=== PATIENT | male | born 1980 ===

== ENCOUNTER 2024-07-18 06:57 | Day surgery (SDC) | payer BC, SELFPAY ==
[2024-07-18] MEDS ORDERED: NA CHLORIDE 0.9% 1,500 ML ONE (07:04)
[2024-07-18] MEDS ORDERED: OXYMETAZOLINE HCL 0.05% 15ML NAS ONE ×2 (07:15→10:33)
[2024-07-18] MEDS: Ringers Lactate 1,000 ML IV ONE (07:45)
[2024-07-18] MEDS ORDERED: ONDANSETRON 4 MG/2 ML VIAL ONE (09:07)
[2024-07-18] MEDS ORDERED: FENTANYL CITR 100 MCG/2 ML ONE ×3 (09:07→11:31)
[2024-07-18] MEDS ORDERED: MIDAZOLAM HCL 2 MG/2 ML INJ ONE (09:07)
[2024-07-18] MEDS ORDERED: propofoL 200 MG/20 ML VIAL IV ONE (09:07)
[2024-07-18] MEDS ORDERED: LIDOCAINE 2% MPF 5 ML VIAL ONE (09:07)
[2024-07-18] MEDS ORDERED: ROCURONIUM 50 MG/5 ML VIAL IV ONE ×2 (09:10→10:15)
[2024-07-18] MEDS: CEFAZOLIN SODIUM 2 GM/VIAL ONE (09:53)
[2024-07-18] MEDS: LIDOCAINE HCL/EPINEPHRINE 20 ML MDV ONE (10:08)
[2024-07-18] MEDS ORDERED: dexAMETHasone 4 MG/ML VIAL ONE (10:11)
[2024-07-18] MEDS ORDERED: EPHEDRINE SULF 50 MG/ML VIAL ONE (10:24)
[2024-07-18] MEDS: TRANEXAMIC ACID 1,000 MG/10 ML VIAL IV ONE (10:34)
[2024-07-18] MEDS ORDERED: TRANEXAMIC ACID 1,000 MG/10 ML VIAL IV ONE (10:38)
[2024-07-18] MEDS ORDERED: BSS OPTHALMIC SOL 15 ML OPTH ONE (11:29)
[2024-07-18] MEDS: ONDANSETRON 4 MG/2 ML VIAL ONE (13:12)
[2024-07-18] MEDS ORDERED: Ringers Lactate 1,000 ML IV ONE (13:13)
[2024-07-18] MEDS: HYDROMORPHONE HCL 1 MG/ML INJ ONE (13:19)
[2024-07-18] MEDS: PROMETHAZINE INJ 25 MG/ML AMP ONE ×2 (13:25)
[2024-07-18 14:01] VITALS: O2SAT 100
[2024-07-18 15:06] VITALS: BP 133/87; TEMP 97.8
--- NOTE | 2024-07-22 10:57 | EKG ---
Test Date: 2024-07-18 Test Time: 08:15:29 Clinical Data Abstractor: ANABELL MEASUREMENT RESULTS: Intervals: Rate: 65 NC: 138 QRSD: 118 QT: 408 QTc: 424 Chandler: P: 43 NC: 138 QRS: -28 T: 12 INTERPRETIVE STATEMENTS: Normal sinus rhythm Nonspecific intraventricular conduction delay Borderline ECG Compared to ECG 07/17/2013 11:03:34 Intraventricular conduction delay now present Left-axis deviation no longer present Right bundle-branch block no longer present Electronically Signed On 07-22-24 10:51:52 PRODUCT APPLICATIONS ENGINEER by Kojo Ibanez
--- NOTE | 2024-07-23 20:41 | OP ---
Date of Procedure: 07/18/2024 Surgeon: TYLER CHADWICK Preoperative Diagnoses: 1. Chronic bilateral nasal/sinus polyposis. 2. Bilateral maxillary sinusitis. 3. Right anterior ethmoid sinusitis. Postoperative Diagnoses: 1. Chronic bilateral nasal/sinus polyposis. 2. Bilateral maxillary sinusitis. 3. Right anterior ethmoid sinusitis. Procedures: 1. Stereotactic computer-assisted navigational guidance. 2. Bilateral endonasal/sinus polypectomies. 3. Bilateral maxillary sinus lavage. 4. Removal of bilateral maxillary sinus tissue, fungal debris from left maxillary sinus and polyps from right maxillary sinus. 5. Right anterior ethmoidectomy. Anesthesia: General endotracheal anesthesia was administered. I also infiltrated the nasal polyps with approximately 10 mL of 1% lidocaine with 1:100,000 epinephrine. Specimens: Obtained from the left maxillary sinus and bilateral nasal cavities. Estimated Blood Loss: Approximately 100-150 mL. Findings: Extensive left nasal cavity and left sinus polyps with complete opacification of the left maxillary sinus with, what appears to be, allergic fungal tissue. Anatomy is distorted secondary to polyp growth. Right nasal cavity positive for mild polyposis posteriorly blocking the ostiomeatal complex and instead extending into the ethmoid sinus. Partial opacification of the right maxillary sinus with polyps. Complications: The patient had above average bleeding, which is expected for chronic nasal polyps, last surgery was approximately 20 years ago. The patient needed tranexamic acid to slow down the bleeding, which eventually stopped. Disposition: Stable. The patient tolerated the procedure well. Indication For Procedure: The patient is a 44-year-old male with a prior history of external approach to excision of polyps 20 years ago, who presented to my outpatient clinic with chronic nasal obstruction, left nasal cavity worse than right. Examination revealed extensive polyposis involving the left nasal cavity extending to the sinuses including ethmoid, maxillary, sphenoid and frontal. Right nasal cavity exam demonstrated mild polyposis involving the right maxillary sinus and occluding the ostiomeatal complex and extending into the right frontal recess and ethmoid sinus. These are indications to bring the patient to the operating suite for the above-mentioned procedure. He understood, all questions were answered. Risks versus benefits and complications were explained in detail and a consent form was signed, was placed in the chart. Description Of Procedure: The patient was transferred from the preoperative holding area to the operative suite by Department of Anesthesia, placed on the operating table supine, sedated, and intubated in normal fashion. Table was rotated 180 degrees and head rest was placed. We calibrated the navigation guidance machine to the patient and found that it was working accurately. Afrin-soaked nasal pledgets were introduced in bilateral nasal cavities and the patient was sterilely prepped and draped. The pledgets were removed and I injected the nasal polyps with approximately 10 ml of 1% lidocaine with 1:100,000 epinephrine. I then visualized with a 0 degree rigid nasal endoscope and used a 4.0 microdebrider blade to remove the polyps initially from the left nasal cavity extending all the way back to the sphenoid sinus rostrum. Dissection was very meticulous and it took almost 2 hours to remove the tissue due to oozing of blood. The polyps were completely removed from the left nasal cavity extending back to the sphenoid sinus, the left frontal recess, and the polyps that were blocking the left ostiomeatal complex. I then used irrigation to irrigate the left maxillary sinus as he had a widening of his left maxillary ostium due to expansile nature of polyps and debris. There was complete opacification with fungal debris, which was removed, under visualization with a 70-degree endoscope and we were able to remove all the fungal debris from his left maxillary sinus utilizing suction, irrigation, and Fadumo forceps. We sent off a left nasal cavity polyp and fungal debris from left maxillary sinus to pathology. Once the cavity was cleaned, we then turned our attention to the right nasal cavity. The patient had polyps involving the right maxillary sinus, which were removed by utilizing the microdebrider. The patient already had wide ostium due to expansile nature of the polyps distorting the anatomy. The polyps were completely removed from the right maxillary sinus and I irrigated the sinus with approximately 60 mL and suctioned out the residual contents. I then removed the polyps extending to the right ethmoid bulla and then up into the right frontal recess. The patient has significant osteitis of the right ethmoid sinus. I did perform an anterior ethmoidectomy on the right ethmoid sinus due to polyps extending into the anterior ethmoid sinus cavity up to basal lamella. At this point, I placed Propel implants located at the opening to left ethmoid sinus, left maxillary sinus opening, and right maxillary sinus opening. Hemostasis was achieved with tranexamic acid and once the polyps were removed, the bleeding almost completely resolved at that point. A mustache dressing was placed. The patient tolerated the procedure well, and he will be discharged to home on antibiotic and analgesic medication. Will follow up in 1 week or sooner if needed. ODESSA/ALISHA Voice ID: [id number] Report ID: [id number] CHANTE
== END 2024-07-18 14:50 | disposition home or self-care (01) ==
LOC: OR 06:57
PROVIDERS: ATTEND Otolaryngology Facial Plastic Surgery
PROC: 09CR8ZZ Extirpation of Matter from Left Maxillary Sinus, Via Natural or Artificial Opening Endoscopic (ICD-10-PCS; 2024-07-18)
PROC: 09CQ8ZZ Extirpation of Matter from Right Maxillary Sinus, Via Natural or Artificial Opening Endoscopic (ICD-10-PCS; 2024-07-18)
PROC: 09BU8ZZ Excision of Right Ethmoid Sinus, Via Natural or Artificial Opening Endoscopic (ICD-10-PCS; principal; 2024-07-18 08:30)
DX: J33.0 Polyp of nasal cavity (principal); J32.0 Chronic maxillary sinusitis; J32.2 Chronic ethmoidal sinusitis
CPT/HCPCS: 87070; 87077; 87102; 87176; 87186; 87205; 88304; 88305; 93005; J1100; J1171; J2003; J2250; J2405; J2550; J2704; J3010; J7040; J7120